=== PATIENT | male | born 1950 | race Hispanic/Latino ===

== ENCOUNTER 2019-03-24 08:48 | Day surgery (SDC) | payer OTHER ==
[2019-03-21 11:43] VITALS: BP 142/79
[2019-03-21 11:48] LABS: BASOPHILS % (AUTO) 0.8 % (0.0-5.0); EOSINOPHILS % (AUTO) 2.1 % (0.0-8.0); LYMPHOCYTES % (AUTO) 39.8 % (21.0-51.0); MEAN CORPUSCULAR HEMOGLOBIN 29.1 pg (27.0-33.0); MEAN CORPUSCULAR HGB CONC 33.4 g/dL (32.0-36.0); NEUTROPHILS % (AUTO) 47.3 % (40.0-77.0); NUCLEATED RED BLOOD CELLS 0.1 % (0.0-0.19); PLATELET COUNT (AUTO) 179 K/uL (130-400); RED BLOOD CELL COUNT(AUTO) 4.95 MIL/uL (4.50-6.20); WHITE BLOOD COUNT (AUTO) 6.5 K/uL (4.8-10.8)
[2019-03-21 11:59] LABS: POTASSIUM 4.3 mmol/L (3.5-5.1)
[2019-03-21 12:00] LABS: INR 0.95 (0.85-1.15)
[2019-03-21 12:27] LABS: APPEARANCE,URINE Clear (CLEAR); BILIRUBIN,URINE Negative (NEGATIVE); COLOR,URINE Yellow (YELLOW); GLUCOSE, URINE (UA) Negative (NEGATIVE); KETONES,URINE Negative (NEGATIVE); LEUKOCYTE ESTERASE ,URINE Small (NEGATIVE); NITRATE,URINE Negative (NEGATIVE); OCCULT BLOOD,URINE Negative (NEGATIVE); PROTEIN,URINE Negative (NEGATIVE)
[2019-03-21] MEDS: CEFTRIAXONE SODIUM 1 GM IVP SCH (12:30)
[2019-03-21 12:46] LABS: BACTERIA,URINE Rare /HPF (None Seen); RBC,URINE None Seen /HPF (0-1); SQUAMOUS EPITHELIAL CELL,UR Rare /HPF (0-2); WBC,URINE 0-1 /HPF (0-1)
[2019-03-24] VITALS (11 sets, daily range): BP systolic 114–136; BP diastolic 67–80
[~2019-03-24] VITALS: Ht 162.6 cm; Wt 89.4 kg
[~2019-03-24 08:48] MED LIST: ALLO100T PO; ASPI-1197 PO; ATOR20TA65 PO; GENTAMICIN 80 MG/NS 100 ML PB 100 ML IV SCH; METO50TA18 PO; TAMS-1 PO
[2019-03-24] MEDS ORDERED: LACTATED RINGERS 1000ML 1,000 ML IV ONE (10:11)
[2019-03-24] MEDS ORDERED: PROPOFOL 10 MG/ML 20ML VIAL IV ONE (11:37)
[2019-03-24] MEDS ORDERED: LIDOCAINE PF 2% 5ML ABBOJECT ONE (11:37)
[2019-03-24] MEDS ORDERED: FENTANYL CITRATE PF 50 MCG/1 ML 2ML VIAL ONE (11:37)
[2019-03-24] MEDS ORDERED: ONDANSETRON HCL 4 MG/2 ML VIAL ONE (11:38)
[2019-03-24] MEDS ORDERED: SUCCINYLCHOLINE 200MG/10ML SYR ONE (11:41)
[2019-03-24] MEDS ORDERED: ROCURONIUM 10MG/1ML SYR 10 MG/ML ML ONE (11:42)
[2019-03-24] MEDS: CEFTRIAXONE SODIUM 1 GM IVP SCH (11:50)
[2019-03-24] MEDS ORDERED: PHENYLEPHRINE HCL 10 MG/ML 1ML VIAL IV ONE (12:08)
[2019-03-24] MEDS ORDERED: GLYCOPYRROLATE 1 MG/5 ML SYRINGE ONE (12:10)
[2019-03-24] MEDS ORDERED: NEOSTIGMINE 5MG/5ML SYR IV ONE (12:11)
--- NOTE | 2019-03-24 13:30 | NUR ---
F/C 17F LOZA CATH DISCONTINUED USING ASEPTIC TECHNIQUE. 200ML OF CLEAR YELLOW RED TINGED URINE NOTED TO BAG. INSTRUCTED ON IMPORTANCE OF UBIQUITINATING AT HOME WITHIN 6 HOURS. BOTH PT AND FAMILY VERBALIZED UNDERSTANDING.
== END 2019-03-24 14:25 | disposition home or self-care (01) ==
LOC: DAH 08:48
PROVIDERS: ATTEND Urology
DX: N21.0 Calculus in bladder (principal); N40.0 Benign prostatic hyperplasia without lower urinary tract symptoms; I25.10 Atherosclerotic heart disease of native coronary artery without angina pectoris; I10 Essential (primary) hypertension; E78.5 Hyperlipidemia, unspecified; E66.9 Obesity, unspecified; M10.9 Gout, unspecified; K21.9 Gastro-esophageal reflux disease without esophagitis; M19.90 Unspecified osteoarthritis, unspecified site; Z79.82 Long term (current) use of aspirin; Z87.891 Personal history of nicotine dependence; Z79.899 Other long term (current) drug therapy; Z95.1 Presence of aortocoronary bypass graft; Z82.3 Family history of stroke; Z83.3 Family history of diabetes mellitus; Z82.49 Family history of ischemic heart disease and other diseases of the circulatory system; Z98.890 Other specified postprocedural states
CPT/HCPCS: 36415; 52317; 80048; 81001; 85025; 85610; 87088; 93005; 96374; A4344; A4354; A4358; A4600; C1758; J0330; J0696; J1580; J2001; J2370; J2405; J2704; J2710; J3010; J3490; J7120 ×2

== ENCOUNTER → 2024-04-21 | Outpatient (CLI) | payer OTHER ==
[~2024-04-21] MED LIST changes: -GENTAMICIN 80 MG/NS 100 ML PB 100 ML IV SCH
== END | disposition home or self-care (01) ==
LOC: SHCH 08:53
PROVIDERS: ATTEND Internal Medicine Cardiovascular Disease
DX: I73.9 Peripheral vascular disease, unspecified (principal)
CPT/HCPCS: 93925

== ENCOUNTER 2024-11-23 08:20 | Day surgery (SDC) | payer OTHER ==
--- NOTE | 2024-11-21 12:03 | EKG ---
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 : 1950 Requested By: LILLI CURTIS Order Number: [id number] Reading MD: Kathy Villegas Measurements Intervals [place] Rate: 86 P: -89 AR: 277 QRS: 22 QRSD: 105 T: 157 QT: 420 QTc: 467 Interpretive Statements Sinus or ectopic atrial rhythm Ventricular trigeminy Abnormal T, consider ischemia, lateral leads Compared to ECG 03/21/2019 11:30:50 Ectopic atrial rhythm now present Ventricular premature complex(es) now present Low QRS voltage now present T-wave abnormality now present Possible ischemia now present Sinus rhythm no longer present Electronically Signed On 11-21-2024 14:10:16 CDT by Kathy Villegas Please click the below link to view image of tracing.
[2024-11-21 12:19] LABS: BASOPHILS # (AUTO) 0.08 K/uL (0.00-0.20); BASOPHILS % (AUTO) 1.1 % (0.0-5.0); EOSINOPHILS # (AUTO) 0.13 K/uL (0.00-0.70); EOSINOPHILS % (AUTO) 1.8 % (0.0-8.0); HEMATOCRIT 47.3 % (42-54); IMMATURE GRANULOCYTE ABSOLUTE 0.02 K/uL (0-1); MEAN CORPUSCULAR HEMOGLOBIN 28.7 pg (27.0-33.0); MEAN CORPUSCULAR HGB CONC 32.6 g/dL (32.0-36.0); MEAN CORPUSCULAR VOLUME 88.1 fL (79-99); MONOCYTES # (AUTO) 0.7 K/uL (0.1-1.0); MONOCYTES % (AUTO) 9.4 % (3.0-13.0); NEUTROPHILS # (AUTO) 3.3 K/uL (1.8-7.7); NEUTROPHILS % (AUTO) 45.4 % (40.0-77.0); PLATELET COUNT (AUTO) 201 K/uL (130-400); RED BLOOD CELL COUNT(AUTO) 5.37 MIL/uL (4.50-6.20); RED CELL DISTRIBUTION WIDTH 13.6 % (11.0-15.5); WHITE BLOOD COUNT (AUTO) 7.2 K/uL (4.8-10.8)
[2024-11-21 12:26] VITALS: BP 154/80; PULSE 57; RESP 18; TEMP 97.7
[2024-11-21 12:32] LABS: INR 1.03 (0.85-1.15); POTASSIUM 4.4 mmol/L (3.5-5.1); PROTHROMBIN TIME 10.9 SEC (9.6-11.6)
[2024-11-21 12:34] LABS: PARTIAL THROMBOPLASTIN TIME 27.8 SEC (26.3-35.5)
[2024-11-21 12:54] LABS: B-TYPE NATRIURETIC PEPTIDE 270 pg/mL (0-100)
[2024-11-23] VITALS (9 sets, daily range): BP systolic 119–134; BP diastolic 60–73; PULSE 59–70; RESP 13–18; TEMP 97.5–97.9
[~2024-11-23] VITALS: Ht 162.6 cm; Wt 85.8 kg
[~2024-11-23 08:20] MED LIST changes: -ATOR20TA65 PO; +OMEG100033 PO; +ROSU5TAB51 PO
[2024-11-23] MEDS ORDERED: LIDOCAINE HCL 400MG/20ML VIAL ONE (14:33)
[2024-11-23] MEDS ORDERED: IODIXANOL 320 MG/ML 100 ML VIAL ONE (14:33)
[2024-11-23] MEDS ORDERED: NITROGLYCERIN 50MG VIAL ONE (14:33)
[2024-11-23] MEDS ORDERED: HEParin-NS 1,000 UNIT/500 ML 1,000 ML IV ONE (14:33)
[2024-11-23] MEDS ORDERED: HEParin 10,000 UNIT/10ML (1,000 UNIT/ML) VIAL ONE (14:33)
[2024-11-23] MEDS ORDERED: FENTanyl CITRate PF 50 MCG/1 ML 2ML VIAL ONE (14:53)
[2024-11-23] MEDS ORDERED: MIDAZOLAM HCL 1 MG/ML 2ML VIAL ONE (14:54)
[2024-11-23] MEDS ORDERED: cloPIDOgrel 300MG TAB ONE (15:47)
[2024-11-23] MEDS ORDERED: GLUCAGON 1MG KIT 1 MG ML IM PRN (16:00)
[2024-11-23] MEDS ORDERED: 0.9%NACL 1000ML 1,000 ML IV SCH (16:00)
[2024-11-23] MEDS ORDERED: DEXTROSE 50%-WATER 50 ML DISP.SYRIN IV PRN (16:00)
--- NOTE | 2024-11-23 16:03 | PRN ---
Procedure Note INDICATION FOR PROCEDURE: [] Symptom limiting claudication Titus 4 claudication PROCEDURE: [] Conscious sedation Left common femoral arterial sheath placement 45 cm sheath placement from left common femoral artery to right common femoral artery Left common femoral arteriogram Right common femoral arteriogram Lithotripsy angioplasty to right common femoral artery into right profunda artery with the use of a 6 mm x 60 mm balloon Drug coated balloon angioplasty to right common femoral artery into right profunda artery with the use of a 7 mm x 60 mm drug coated balloon up to 6.98 mm DATE OF PROCEDURE: November 23, 2024 CORPORATE MANAGER: Yaw Yao MD, F.A.C.C. PROCEDURE NOTE: [] Prior diagnostic study has been performed so we did place a 6 Setswana sheath in the left common femoral artery. Next an Omni flush catheter was then used and direct a Glidewire to the right common femoral artery. This then successfully went into the right profunda artery. Next the short sheath and Omni flush catheter removed and a 45 cm sheath was then placed from the left common femoral artery and parked in the right common femoral artery. Next a mini catheter was then used to over Glidewire and parked in right profunda with a greater than 60 mm to 70 mm gradient noted across right common femoral artery lesion. Next an 014 run-through wire was then placed through the mini catheter after the glidewire was removed. Next a lithotripsy balloon 6 mm x 16 mm was then placed and a total of 10 treatments were done to the right common femoral artery and right profunda artery. This was then followed by 7 mm by 60 mm drug coated balloon placed in same region and deployed for 3 minutes. Follow up contrast injection with no evidence of dissection or perforation. FINDINGS: [] 95% stenosis in right common femoral artery IMPRESSION: [] Successful lithotripsy angioplasty and drug coated balloon angioplasty to right common femoral artery and right profunda artery PLAN: [] Dual antiplatelet therapy uninterrupted for 90 days YAW YAO MD Nov 23, 2024 16:03
[2024-11-23] MEDS ORDERED: CLOP75TA32 PO (18:08)
[2024-11-24] MEDS ORDERED: cloPIDOgrel 75MG TAB PO SCH (09:00)
[2024-11-24] MEDS ORDERED: ASPIRIN 81MG CHEW TAB PO SCH (09:00)
== END 2024-11-23 18:50 | disposition home or self-care (01) ==
LOC: DAH 08:20
PROVIDERS: ATTEND Internal Medicine Cardiovascular Disease
DX: I70.213 Atherosclerosis of native arteries of extremities with intermittent claudication, bilateral legs (principal); E78.5 Hyperlipidemia, unspecified; Z79.899 Other long term (current) drug therapy; Z79.82 Long term (current) use of aspirin; Z79.01 Long term (current) use of anticoagulants
CPT/HCPCS: 80048; 83880; 85025; 85610; 85730; 36415; 93005; 75716; C9764; C1887; C1725; C1769 ×2; C1894 ×2; C1893; C2623; C1760; J3010; J3490 ×2; J1644 ×2; J2250; Q9967; A4215; A4222; A4221; A4663; A4216; A4606; A4223 ×3; 99156; 99157